=== PATIENT | female | born 1980 | race Caucasian/White ===

== ENCOUNTER 2023-12-19 08:04 | Day surgery (SDC) | payer BC ==
[~2023-12-19 08:04] MED LIST: Sodium Chloride 0.9% 10 ML Syringe FLUSH PRN
[2023-12-19] MEDS ORDERED: Propofol 200 MG/20 ML SDV ONE (08:07)
[2023-12-19] MEDS ORDERED: fentaNYL 100 MCG/2 ML SDV ONE (08:07)
[2023-12-19] MEDS ORDERED: Midazolam 1 MG/ML 2 ML SDV ONE (08:07)
[2023-12-19] MEDS: Lactated Ringers 1,000 ML IV SCH (08:28)
[2023-12-19] MEDS: Lidocaine 1% 5 ML VIAL INFILT ONE (09:13)
== END 2023-12-19 10:17 | disposition home or self-care (01) ==
LOC: LL.SDS 08:04
PROVIDERS: ATTEND Surgery
DX: G56.03 Carpal tunnel syndrome, bilateral upper limbs (principal)
CPT/HCPCS: 81025; J2250; J2704; J3010; J3490; J7120

== ENCOUNTER 2024-02-13 08:11 | Day surgery (SDC) | payer BC ==
[~2024-02-13 08:11] MED LIST changes: +Midazolam 1 MG/ML 2 ML SDV ONE; +Propofol 200 MG/20 ML SDV ONE
[2024-02-13] MEDS: Lidocaine 1% 5 ML VIAL INJECT ONE (09:26)
[2024-02-13] MEDS: Bacitracin Oint 1 GM U/D Packet TOP ONE (09:33)
[2024-02-13] MEDS: Lactated Ringers 1,000 ML IV SCH (10:00)
== END 2024-02-13 10:25 | disposition home or self-care (01) ==
LOC: LL.SDS 08:11
PROVIDERS: ATTEND Surgery
DX: G56.02 Carpal tunnel syndrome, left upper limb (principal)
CPT/HCPCS: J2250; J2704; J3490; J7120

== ENCOUNTER 2025-03-06 20:31 | Emergency (ER) | payer BC ==
[2025-03-06] MEDS: Bacitracin Oint 1 GM U/D Packet TOP ONE (20:44)
== END 2025-03-06 21:32 | disposition home or self-care (01) ==
LOC: LL.ED 20:31
DX: S81.811A Laceration without foreign body, right lower leg, initial encounter (principal); Z88.8 Allergy status to other drugs, medicaments and biological substances; X58.XXXA Exposure to other specified factors, initial encounter
CPT/HCPCS: 12002; 99282; 99283; J2003